=== PATIENT | female | born 1950 | race Caucasian/White ===

== ENCOUNTER 2017-10-29 09:25 | Emergency (ER) | payer MEDICARE, OTHER ==
[2017-10-29 10:10] LABS: BILIRUBIN,URINE NEGATIVE (NEGATIVE); GLUCOSE, URINE (UA) NEGATIVE (NEGATIVE); KETONES,URINE (UA) TRACE mg/dL (NEGATIVE); LEUKOCYTE ESTERASE, URINE NEGATIVE (NEGATIVE); NITRITE,URINE NEGATIVE (NEGATIVE); OCCULT BLOOD,URINE MODERATE (NEGATIVE); PH,URINE 6.5 PH (5.0-7.5); PROTEIN,URINE TRACE mg/dL (NEGATIVE); UROBILINOGEN,URINE 0.2 (NORMAL) E.U./dL (NORMAL)
[2017-10-29 10:13] LABS: BASOPHILS % (AUTO) 0.4 %; EOSINOPHILS # (AUTO) 0.1 10^3/uL (0.0-0.7); EOSINOPHILS % (AUTO) 1.2 %; LYMPHOCYTES # (AUTO) 1.8 10^3/uL (1.5-3.5); LYMPHOCYTES % (AUTO) 30.5 %; MEAN CORPUSCULAR HEMOGLOBIN 28.3 pg (27.0-31.0); MEAN CORPUSCULAR HGB CONC 33.2 g/dL (32.0-36.0); MEAN CORPUSCULAR VOLUME 85.1 fL (81.0-99.0); MEAN PLATELET VOLUME 8.5 fL (7.9-10.8); MONOCYTES # (AUTO) 0.6 10^3/uL (0.0-1.0); MONOCYTES % (AUTO) 9.4 %; NEUTROPHILS # (AUTO) 3.5 10^3/uL (1.5-6.6); NEUTROPHILS % (AUTO) 58.5 %; PLT - PLATELET COUNT 283 10^3/uL (130-450)
[2017-10-29 10:20] LABS: ALBUMIN 4.8 g/dL (3.2-5.5); ALBUMIN/GLOBULIN RATIO 1.2 (1.0-2.2); BILIRUBIN,TOTAL 1.2 mg/dL (0.2-1.0); CALCIUM 9.8 mg/dL (8.5-10.3); CREATININE 0.8 mg/dL (0.4-1.0); TOTAL PROTEIN 8.8 g/dL (6.7-8.2)
[2017-10-29 10:21] LABS: CLARITY,URINE CLEAR (CLEAR)
[2017-10-29 10:26] LABS: BACTERIA,URINE Moderate /HPF (None Seen); RBC,URINE 0-5 /HPF (0-5); SQUAMOUS EPITHELIAL CELL,UR RARE Squamous (<= Few)
--- NOTE | 2017-10-29 10:47 | ED Physician Documentation ---
PD HPI ABD PAIN - Stated complaint Stated Complaint: AB PX - Chief complaint Chief Complaint: Abd Pain - History obtained from History obtained from: Patient - History of Present Illness Timing - duration: Days (2) Timing - details: Intermittant Pain level max: 7 Pain level now: 3 Quality: Pain Location: RUQ Worsened by: Eating Associated symptoms: Nausea. No: Fever, Vomiting, Dysuria Similar symptoms before: Has not had sx before - Additional information Additional information: The patient is a 67-year-old female who presents with right upper quadrant abdominal pain that has been waxing and waning for the past 2 or 3 days. It was gradual in onset. It was worse last night after eating turkey meatballs. She also noticed it was worse after eating peanut butter. She reports associated nausea. She denies vomiting, fever, diarrhea, or dysuria. She has a past history of kidney stones, but states this feels different from kidney stones. She has had no abdominal surgery. Review of Systems Constitutional: denies: Fever Nose: denies: Congestion Throat: denies: Sore throat Cardiac: denies: Chest pain / pressure Respiratory: denies: Dyspnea, Cough GI: reports: Abdominal Pain, Nausea. 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 HEENT: Tonsil/Adenoidectomy, Other - Present Medications Home Medications: Ambulatory Orders Medication Instructions Recorded Confirmed Promethazine [Phenergan] 25 - 50 mg PO Q6H PRN #10 tab 10/29/17 traMADol [Ultram] 50 mg PO Q6H PRN #20 tablet 10/29/17 - Allergies Allergies/Adverse Reactions: Allergies Allergy/AdvReac Type Severity Reaction Status Date / Time No Known Drug Allergies Allergy Verified 10/29/17 09:49 - Social History Does the pt smoke?: No Smoking Status: Never smoker PD ED PE NORMAL - Vitals Vital signs reviewed: Yes (Initially hypertensive.) - General General: Alert and oriented X 3, Well developed/nourished - HEENT HEENT: Atraumatic, Moist mucous membranes, Pharynx benign - Neck Neck: No adenopathy, No JVD - Cardiac Cardiac: RRR, No murmur - Respiratory Respiratory: No respiratory distress, Clear bilaterally - Abdomen Abdomen: Normal bowel sounds, Soft, No organomegaly, Other (Mild tenderness to palpation in the right upper quadrant, without rebound tenderness or guarding.) - Back Back: No CVA TTP - Derm Derm: No rash - Extremities Extremities: No edema, No calf tenderness / cord - Neuro Neuro: Alert and oriented X 3, No motor deficit, Normal speech Results - Vitals Vitals: Oxygen O2 Source Room air - Labs Labs: Microbiology 10/29/17 09:54 Urine Culture - Final Urine,Clean Catch Beta Hemolytic Strep Group B Laboratory Tests 10/29/17 10/29/17 10/29/17 09:54 09:54 09:54 WBC 6.0 RBC 5.30 Hgb 15.0 Hct 45.1 MCV 85.1 MCH 28.3 MCHC 33.2 RDW 13.0 Plt Count 283 MPV 8.5 Neut # (Auto) 3.5 Lymph # (Auto) 1.8 [place] # (Auto) 0.6 Eos # (Auto) 0.1 Baso # (Auto) 0.0 Absolute Nucleated RBC 0.00 Nucleated RBC % 0.0 Sodium 137 Potassium 3.4 L Chloride 99 L Carbon Dioxide 28 Anion Gap 10.0 BUN 13 Creatinine 0.8 Estimated GFR (MDRD) 72 L Glucose 116 H Calcium 9.8 Total Bilirubin 1.2 H AST 31 ALT 23 Alkaline Phosphatase 84 Total Protein 8.8 H Albumin 4.8 Globulin 4.0 Albumin/Globulin Ratio 1.2 Lipase 21 L Urine Color YELLOW Urine Clarity CLEAR Urine pH 6.5 Ur Specific Wells 1.015 Urine Protein TRACE Urine Glucose (UA) NEGATIVE Urine Ketones TRACE Urine Occult Blood MODERATE H Urine Nitrite NEGATIVE Urine Bilirubin NEGATIVE Urine Urobilinogen 0.2 (NORMAL) Ur Leukocyte Esterase NEGATIVE Urine RBC 0-5 Urine WBC 0-3 Ur Squamous Epith Cells RARE Squamous Urine Bacteria Moderate H Ur Microscopic Review INDICATED Urine Culture Comments INDICATED - Rads (name of study) RUQ U/S Radiology: Prelim report reviewed, EMP read contemporaneously, See rad report ( Negative right upper quadrant ultrasound. No gallstones.) PD MEDICAL DECISION MAKING - ED course Complexity details: reviewed results, re-evaluated patient, considered differential, d/w patient ED course: The underlying cause of the patient's abdominal pain is uncertain at this time. Given her history of kidney stones, and microscopic hematuria, renal colic is the most likely etiology. Her clinical presentation initially suggested the possibility of biliary colic. However ultrasound the right upper quadrant is normal, with no evidence of biliary disease. CBC and chemistry panel, including pancreatic enzymes are normal. the patient is being discharged with prescription for Phenergan and for tramadol. I discussed with her the results of her workup, symptomatic treatment and outpatient follow-up, as well as potentially worrisome signs or symptoms that should prompt reevaluation in the emergency department. - Sepsis Event Vital Signs: Oxygen O2 Source Room air Departure - Departure Disposition: Home, Self Care Clinical Impression: History of kidney stones Abdominal pain Qualifiers: Abdominal location: right upper quadrant Qualified Code(s): R10.11 - Right upper quadrant pain Condition: Stable Instructions: ED Abdominal Pain Unkn Cause Prescriptions: Promethazine [Phenergan] 25 - 50 mg PO Q6H PRN #10 tab PRN Reason: Nausea / Vomiting traMADol [Ultram] 50 mg PO Q6H PRN #20 tablet PRN Reason: Pain Comments: Drink plenty of fluids. You can use ibuprofen, up to 800 mg 3 times daily for its anti-inflammatory effect. He can use Phenergan as prescribed if needed for nausea. You can use tramadol as prescribed if needed for pain. Follow up with your primary physician within 1-2 weeks. Call to schedule appointment. Return to the emergency room if you develop increasing abdominal pain, persistent vomiting, fever, or otherwise worsening symptoms. Discharge Date/Time: 10/29/17 12:56
--- NOTE | 2017-10-29 12:09 | Ultrasound Report ---
LIMITED ABDOMEN ULTRASOUND: 10/29/2017 HISTORY: Abdomen pain. TECHNIQUE: Realtime scanning by the hydraulic design engineer with saved static images reviewed. COMPARISON: No comparisons. FINDINGS: The liver measures 13.7 cm longitudinally and is of normal echotexture. Normal directional portal venous blood flow. The gallbladder is normal without stones. Wall thickness 1.5 mm. Common bile duct 4 mm. Right kidney measures 9.6 cm in length and appears normal. No free fluid. IMPRESSION: NEGATIVE RIGHT UPPER QUADRANT ULTRASOUND. NO CHOLELITHIASIS OR CHOLECYSTITIS. TD: 10/29/2017 11:27
[2017-10-29 12:56] VITALS: BP 141/91
== END 2017-10-29 12:56 | disposition home or self-care (01) ==
LOC: ED 09:25
DX: R10.11 Right upper quadrant pain (principal); I10 Essential (primary) hypertension; J45.909 Unspecified asthma, uncomplicated; Z87.442 Personal history of urinary calculi; R31.29 Other microscopic hematuria; R11.0 Nausea
CPT/HCPCS: 36415; 76705; 80053; 81001; 81003; 83690; 85025; 87077; 87086; 99283; 99284